=== PATIENT | female | born 1995 | race Caucasian/White ===

== ENCOUNTER 2016-06-28 13:34 | Emergency (ER) | payer BC, OTHER ==
[~2016-06-28] VITALS: Ht 154.9 cm; Wt 66.5 kg
[~2016-06-28 13:34] MED LIST: ETON1IMP2; FLUO20CA35 PO; INSPMPNVLG
[2016-06-28 13:38] VITALS: TEMP 37.3; Ht 154.9 cm; Wt 66.5 kg
[2016-06-28 14:56] VITALS: O2SAT 96
[2016-06-28 15:08] LABS: URINE APPEARANCE TURBID (CLEAR); URINE BILIRUBIN NEG (NEG); URINE COLOR DK YELLOW; URINE EPITHELIAL CELL AUTO >30 /lpf (0-5); URINE NITRITE NEG (NEG); URINE PH >= 9.0 (4.5-7.5); URINE SPECIFIC GRAVITY 1.039 (1.000-1.030); UROBILINOGEN NEG (NEG); ZZUR CULT IF INDIC CLEAN CATCH YES
[2016-06-28 15:11] LABS: MANUAL MICROSCOPIC REQUIRED? NO; REVIEW REQ? YES
[2016-06-28 15:14] LABS: SULFASALICYLIC ACID POS (NEG)
[2016-06-28 15:18] LABS: BASO % 0.3 %; BASO ABS # 0.02 K/uL (0-0.2); COMPLETE YES; EOS % 1.9 %; HEMATOCRIT 43.7 % (37-47); IG% 0.1 %; LYMPH % 38.2 %; LYMPH ABS # 3.01 K/uL (1.2-3.4); MEAN CELL VOLUME 84.9 fL (80-100); MEAN CORPUSCULAR HEMOGLOBIN 30.5 pg (25-34); MEAN CORPUSCULAR HGB CONC 35.9 g/dl (32-36); MONO % 6.2 %; NEUT % 53.3 %; PLATELET COUNT 274 K/uL (130-400); RED BLOOD COUNT 5.15 M/uL (4.2-5.4); WHITE BLOOD COUNT 7.87 K/uL (4.8-10.8)
--- NOTE | 2016-06-28 15:35 | EMERGENCY ROOM VISIT NOTE ---
History First contact with patient: 14:27 Chief Complaint: CHEST PAIN Stated Complaint: CHEST PAIN/TIGHTNESS Nursing Triage Summary: Patient c/o left sided chest pain, with pain into the left breast that is intermittent. Patient also has intermittent pain into the left shoulder blade Denies any history, shortness of breath, nausea or diaphoresis History of Present Illness The patient is a 20 year old female who presents to the Emergency Room via private vehicle accompanied by family with complaints of "chest pain/tightness. Patient states that she was here in September of last year and diagnosed with ketones in the urine in her urine which was believed to cause the chest pain. Patient states that [facility] she dipped her urine and found no ketones. Patient states that she has been experiencing chest pain in the left anterior chest region that has been transient since this morning and feels pinpoint just medial to the left superior breast time to radiate to the left scapula. She denies any skin changes. She denies any pain at this time. She states that she would medics press with a performed a chest x -ray and EKG and as per patient could not find anything therefore sent her here for further evaluation and management. Patient also states at times the left leg will feel numb and is worse while at work. Currently she rates the pain as a 0/10, and feels that something is stuck deep in her chest. She also had vomiting Tuesday but none since. She has difficulty taking a deep breath. She denies shortness of breath. Denies history of blood clots. Denies any heart trouble. She missed a smoking and diabetes. She denies any pain in the abdomen or other symptoms. Review of Systems A complete 10-point Review of Systems was discussed with the patient, with pertinent positives and negatives listed in the History of Present Illness. All remaining Review of Systems questions can be considered negative unless otherwise specified. Past Medical/Surgical History Medical Problems: (1) Diabetes Social History Smoking Status: Never Smoker Marital Status: single Housing Status: lives with roommate Occupation Status: [employer] student Current/Historical Medications Scheduled Fluoxetine (Prozac), 20 MG PO DAILY Insulin Aspart (novoLOG INSULIN PUMP ), 1 EA N/A UD Sulfa/Trimethoprim (Bactrim Ds 800MG/160MG), 1 TAB PO BID Allergies Coded Allergies: Cephalexin (Verified Allergy, Intermediate, rash, 06/28/16) Physical Exam Vital Signs Date Time Temp Pulse Resp B/P Pulse Ox O2 Delivery O2 Flow Rate FiO2 06/28/16 16:35 96 18 112/77 97 Room Air 06/28/16 14:57 100 06/28/16 14:56 96 Room Air 06/28/16 14:37 98 18 136/86 98 Room Air 06/28/16 13:38 37.3 111 20 137/86 98 Room Air Physical Exam VITAL SIGNS - Vital signs and nursing notes were reviewed. Patient is afebrile , normotensive, tachycardic at a rate of 111 bpm and is saturating well on room air 98%. GENERAL -20-year-old female appearing her stated age who is in no acute distress. Communicates well with provider and answers questions appropriately. SKIN - Without rashes. HEAD - NC/AT. EYES - PERRL with EOMI bilaterally. Sclera anicteric. Palpebral conjunctiva pink and moist with no injection noted. EARS - No deformities of external structures noted on gross examination bilaterally. No pain elicited with palpation of the tragus bilaterally. External auditory canals without discharge or otorrhea. Tympanic membranes pearly barrera without retraction or bulging. No fluid or purulent material visualized behind the TM. Handle of malleus, umbo, cone of light, pars tensa/ flaccid all easily visualized. NOSE - Midline and without cyanosis. No epistaxis or purulent drainage noted. Septum midline without deviation or septal hematoma noted. MOUTH/OROPHARYNX - Without perioral cyanosis. Buccal mucosa pink and moist and without leukoplakia. Tongue midline with equal elevation of palate bilaterally. No tonsillar hypertrophy, erythema, or exudates noted. Good dentition noted. NECK - Neck with FROM. Supple to palpation. No lymphadenopathy noted. No nuchal rigidity. No meningismus. LUNGS - Chest wall symmetric without accessory muscle use, intercostals retractions, or central cyanosis. Normal vesicular breath sounds CTA B/L. No wheezes, rales, or rhonchi appreciated. CARDIAC - RRR with S1/S2. No murmur, rubs, or gallops appreciated. No reproducible tenderness of the left anterior chest or shoulder. ABDOMEN - Abdominal contour without pulsations or visible masses. BS normoactive all four quadrants. No tenderness, palpable masses, hepatosplenomegaly, or ascites noted. EXTREMITIES - No clubbing or peripheral cyanosis. No pretibial edema present. +5 /5 strength noted in UE/LE bilaterally. NEUROLOGIC - Cranial nerves II through XII grossly intact. Sensory intact to light touch throughout. PSYCH - Pt is very pleasant and interacts well with examiner. Medical Decision & Procedures ER Provider Diagnostic Interpretation: CHEST 2 VIEWS ROUTINE CLINICAL HISTORY: Left anterior chest pain pain COMPARISON STUDY: 11/23/2014 FINDINGS: The bones soft tissues and hemidiaphragms are normal. The cardiomediastinal silhouette is normal. The lungs are clear. The pulmonary vasculature is normal. IMPRESSION: Negative chest. Electronically signed by: Fredrick Sams M.D. 06/28/2016 3:57 PM Dictated Date/Time: 06/28/2016 3:57 PM Laboratory Results 06/28/16 15:10 Red Blood Count 5.15, Mean Corpuscular Volume 84.9, Mean Corpuscular Hemoglobin 30.5, Mean Corpuscular Hemoglobin Concent 35.9, Mean Platelet Volume 10.0, Neutrophils (%) (Auto) 53.3, Lymphocytes (%) (Auto) 38.2, Monocytes (%) (Auto) 6.2, Eosinophils (%) (Auto) 1.9, Basophils (%) (Auto) 0.3, Neutrophils # (Auto) 4.19, Lymphocytes # (Auto) 3.01, Monocytes # (Auto) 0.49, Eosinophils # (Auto) 0.15, Basophils # (Auto) 0.02 06/28/16 15:10 Test 06/28/16 14:54 06/28/16 15:10 06/28/16 15:15 Urine Color DK YELLOW Urine Appearance TURBID (CLEAR) Urine pH >= 9.0 (4.5-7.5) Urine Specific [place] 1.039 (1.000-1.030) Urine Protein 2+ (NEG) Urine Glucose (UA) NEG (NEG) Urine Ketones 1+ (NEG) Urine Occult Blood NEG (NEG) Urine Nitrite NEG (NEG) Urine Bilirubin NEG (NEG) Urine Urobilinogen NEG (NEG) Urine Leukocyte Esterase SMALL (NEG) Urine WBC (Auto) >30 /hpf (0-5) Urine RBC (Auto) 0-4 /hpf (0-4) Urine Hyaline Casts (Auto) 1-5 /lpf (0-5) Urine Epithelial Cells (Auto) >30 /lpf (0-5) Urine Bacteria (Auto) 4+ (NEG) Urine Pathogenic Casts /lpf (0) Urine Test NEG (NEG) White Blood Count 7.87 K/uL (4.8-10.8) Red Blood Count 5.15 M/uL (4.2-5.4) Hemoglobin 15.7 g/dL (12.0-16.0) Hematocrit 43.7 % (37-47) Mean Corpuscular Volume 84.9 fL (80-100) Mean Corpuscular Hemoglobin 30.5 pg (25-34) Mean Corpuscular Hemoglobin Concent 35.9 g/dl (32-36) Platelet Count 274 K/uL (130-400) Mean Platelet Volume 10.0 fL (7.4-10.4) Neutrophils (%) (Auto) 53.3 % Lymphocytes (%) (Auto) 38.2 % Monocytes (%) (Auto) 6.2 % Eosinophils (%) (Auto) 1.9 % Basophils (%) (Auto) 0.3 % Neutrophils # (Auto) 4.19 K/uL (1.4-6.5) Lymphocytes # (Auto) 3.01 K/uL (1.2-3.4) Monocytes # (Auto) 0.49 K/uL (0.11-0.59) Eosinophils # (Auto) 0.15 K/uL (0-0.5) Basophils # (Auto) 0.02 K/uL (0-0.2) RDW Standard Deviation 37.3 fL (36.4-46.3) RDW Coefficient of Variation 12.1 % (11.5-14.5) Immature Granulocyte % (Auto) 0.1 % Immature Granulocyte # (Auto) 0.01 K/uL (0.00-0.02) Anion Gap 11.0 mmol/L (3-11) Est Creatinine Clear Calc Drug Dose 108.4 ml/min Estimated GFR () 140.1 Estimated GFR (Non- 120.9 BUN/Creatinine Ratio 15.6 (10-20) Calcium Level 9.3 mg/dl (8.5-10.1) Total Bilirubin 0.4 mg/dl (0.2-1) Aspartate Amino Transf (AST/SGOT) 14 U/L (15-37) Alanine Aminotransferase (ALT/SGPT) 25 U/L (12-78) Alkaline Phosphatase 76 U/L (45-117) Total Creatine Kinase 67 U/L (26-192) Creatine Kinase MB 0.8 ng/ml (0.5-3.6) Creatine Kinase MB Ratio 1.2 (0-3.0) Total Protein 7.6 gm/dl (6.4-8.2) Albumin 4.3 gm/dl (3.4-5.0) Globulin 3.3 gm/dl (2.5-4.0) Albumin/Globulin Ratio 1.3 (0.9-2) Thyroid Stimulating Hormone (TSH) 1.210 uIu/ml (0.300-4.500) Bedside D-Dimer 124 ng/mlFEU (0-450) Bedside Troponin I 0.000 ng/ml (0-0.045) Medical Decision Patient was seen and evaluated as above. After obtaining a thorough history and physical examination the above workup was initiated. CBC reveals no leukocytosis or anemia, point care d-dimer was 124, CMP reveals slight hypokalemia at 3.3, random glucose elevated at 1:15 in AST low at 14. Troponin was negative. TSH was within normal limits. Urine reveals 4+ bacteria, greater than 30 white blood cells, a small amount of leukocyte esterase and greater than 30 epithelial cells. I do suspect she has a UTI. Urine test was negative. I do not believe the UTI is correlating with the pain. Patient's EKG reveals normal sinus rhythm, rate of 90 bpm, without any significant change when compared with previous. Patient was recommended to have a follow-up echocardiogram with her family doctor by following up with them by calling their office first thing tomorrow morning. I do not suspect any emergent cardiac abnormality given no ectopy or ischemic change, and negative troponin. She'll be treated for the UTI with Bactrim. She does have a Keflex allergy. I do not suspect pulmonary embolism as the patient has a normal d-dimer. Patient was offered a CT scan of the chest and declined. The patient does feel she is able to go home with close follow-up with her family doctor. I do believe this is reasonable. The patient was educated upon today' s findings, had questions answered prior to discharge and was discharged home in good condition. I do not suspect any emergent nature to the patient's pain at this time. Patient will be treated for the UTI. In the evaluation and treatment of this patient the following differential diagnoses were entertained: PE, [place], ACS, pleurisy, pericarditis, pneumonia, pneumothorax, muscle strain, UTI, among others. Impression Primary Impression: Chest wall pain Additional Impressions: Hypokalemia UTI (urinary tract infection) Departure Information Dispostion Home / Self-Care Condition GOOD Prescriptions Sulfa/Trimethoprim (Bactrim Ds 800MG/160MG) Tab 1 TAB PO BID for 3 Days, #6 TAB Prov: Cornelius Arguelles PA-C 06/28/16 Referrals Jose Pina M.D. (PCP) Patient Instructions Hypokalemia [place], My [facility] Additional Instructions You have been treated in the Emergency Department for a Chest pain and Urinary Tract Infection (UTI). You were troponin here was 0. Your d-dimer was 124. You have been prescribed Bactrim to be taken twice daily for 3 days. This is an antibiotic. All antibiotics have the potential to cause diarrhea. Stop this medication and contact a medical provider if you were to develop any significant adverse side effects including: wheezing, shortness of breath, passing out, vomiting, or a diffuse rash. Always take antibiotics as directed and COMPLETE the ENTIRE course regardless of the improvement of your symptoms. Your EKG here was similar to previous, but it is recommended that you have an echocardiogram in the outpatient setting. Please discuss this with your family doctor. For pain control, you can use the following phwy-dsh-aprkyoa medicines (if >12 yo): - Regular strength (325mg/tab) Tylenol (acetaminophen) 2 tabs every 4-6 hours as needed. Do not exceed 12 tablets in a 24 hour period. Avoid taking more than 4 grams (4000 mg) of Tylenol per day. This includes any other sources of acetaminophen you may take on a regular basis. - Regular strength (200 mg/tab) Advil (ibuprofen) 1-2 tabs every 4-6 hours as needed. Do not exceed a dose of 3200 mg per day. Return to the emergency department if your symptoms worsen despite treatment course outlined above. Drink plenty of water and stay well hydrated. As with any trip to the Emergency Department, you should follow-up with your Primary Care Provider from today's visit. Return to the emergency department if your symptoms persist despite treatment plan outlined above or if the following symptoms occur: increased fevers, chills , low back pain, nausea/vomiting, or blood in your urine. Please keep your appointment tomorrow with her family doctor. Please return to the emergency Department with any new/concerning symptoms. Problem Qualifiers
[2016-06-28 15:37] LABS: BUN/CREATININE RATIO 15.6 (10-20); CALCIUM 9.3 mg/dl (8.5-10.1); CREATININE 0.71 mg/dl (0.60-1.20); POTASSIUM 3.3 mmol/L (3.5-5.1)
[2016-06-28 15:48] LABS: ALB/GLOB RATIO 1.3 (0.9-2); CKMB/CK RATIO 1.2 (0-3.0); THYROID STIMULATING HORMONE 1.21 uIu/ml (0.300-4.500)
--- NOTE | 2016-06-28 15:59 | DIAGNOSTIC IMAGING REPORT ---
CHEST 2 VIEWS ROUTINE CLINICAL HISTORY: Left anterior chest pain pain COMPARISON STUDY: 11/23/2014 FINDINGS: The bones soft tissues and hemidiaphragms are normal. The cardiomediastinal silhouette is normal. The lungs are clear. The pulmonary vasculature is normal. IMPRESSION: Negative chest. Electronically signed by: Fredrick Sams M.D. 06/28/2016 3:57 PM Dictated Date/Time: 06/28/2016 3:57 PM
[2016-06-28] MEDS ORDERED: SULF800T23 PO (16:31)
[2016-06-28 16:35] VITALS: BP 112/77; PULSE 96; O2SAT 97
== END 2016-06-28 16:52 | disposition home or self-care (01) ==
LOC: C.EDB 13:35 → C.EDA 16:52
DX: R07.89 Other chest pain (principal); E87.6 Hypokalemia; N39.0 Urinary tract infection, site not specified; E11.9 Type 2 diabetes mellitus without complications; Z79.4 Long term (current) use of insulin; Z88.1 Allergy status to other antibiotic agents

== ENCOUNTER → 2016-10-25 | Outpatient (CLI) | payer BC, OTHER ==
[~2016-10-25] MED LIST changes: -ETON1IMP2
== END | disposition home or self-care (01) ==
LOC: C.PAPS 12:35
PROVIDERS: ATTEND Obstetrics & Gynecology
DX: Z01.419 Encounter for gynecological examination (general) (routine) without abnormal findings (principal)

== ENCOUNTER → 2016-12-17 | Outpatient (CLI) | payer BC, OTHER ==
[2016-12-17 13:40] LABS: ESTIMATED AVERAGE GLUCOSE 192 mg/dl; HA1C FLAG Normal (Normal)
[2016-12-17 13:53] LABS: ALT/SGPT 19 U/L (12-78); BLOOD UREA NITROGEN 8 mg/dl (7-18); BUN/CREATININE RATIO 10.1 (10-20); CALCIUM 8.8 mg/dl (8.5-10.1); CARBON DIOXIDE 25 mmol/L (21-32); CHLORIDE 107 mmol/L (98-107); CHOLESTEROL 164 mg/dl (0-200); CREATININE 0.81 mg/dl (0.60-1.20); GLUCOSE 144 mg/dl (70-99); POTASSIUM 3.7 mmol/L (3.5-5.1); SODIUM 139 mmol/L (136-145); TRIGLYCERIDES 95 mg/dl (0-150); VERY LOW DENSITY LIPOPROT CALC 19 mg/dl
[2016-12-17 14:04] LABS: ALKALINE PHOSPHATASE 56 U/L (45-117); AST/SGOT 15 U/L (15-37); CHOLESTEROL/HDL RATIO 3.3; HDL CHOLESTEROL 49 mg/dl
[2016-12-17 15:22] LABS: RATIO 8.3 mcg/mg (0-30.0)
== END | disposition home or self-care (01) ==
LOC: C.LAB1850 11:41
PROVIDERS: ATTEND Internal Medicine Endocrinology, Diabetes & Metabolism
DX: E55.9 Vitamin D deficiency, unspecified (principal); E10.9 Type 1 diabetes mellitus without complications; F41.8 Other specified anxiety disorders; F17.210 Nicotine dependence, cigarettes, uncomplicated

== ENCOUNTER → 2017-01-21 | Outpatient (CLI) | payer BC, OTHER ==
[2017-01-25 14:15] LABS: MUMPS IgG VALUE 56.3 AU/ML
== END | disposition home or self-care (01) ==
LOC: C.LABBFT 15:03
PROVIDERS: ATTEND Internal Medicine
DX: Z00.00 Encounter for general adult medical examination without abnormal findings (principal)

== ENCOUNTER → 2017-06-20 | Outpatient (CLI) | payer OTHER ==
[2017-06-21 06:16] LABS: HEMOGLOBIN A1C 7.9 % (4.5-5.6)
== END | disposition home or self-care (01) ==
LOC: C.LAB1850 16:30
PROVIDERS: ATTEND Internal Medicine Endocrinology, Diabetes & Metabolism
DX: E55.9 Vitamin D deficiency, unspecified (principal); E10.9 Type 1 diabetes mellitus without complications